=== PATIENT | male | born 1980 | race Caucasian/White ===

== ENCOUNTER 2017-10-11 18:44 | Emergency (ER) | payer OTHER, BC ==
[~2017-10-11] VITALS: Ht 182.9 cm; Wt 119.6 kg
[2017-10-11] MEDS ORDERED: MOTRIN800 MG PO (20:07)
[2017-10-11] MEDS ORDERED: NORCO 7.5/321 TABLET PO (20:07)
[2017-10-11 20:32] VITALS: BP 157/95
== END 2017-10-11 20:33 | disposition home or self-care (01) ==
LOC: EME 18:44
DX: S05.01XA Injury of conjunctiva and corneal abrasion without foreign body, right eye, initial encounter (principal); W22.8XXA Striking against or struck by other objects, initial encounter; Y99.0 Civilian activity done for income or pay; F17.200 Nicotine dependence, unspecified, uncomplicated
CPT/HCPCS: 99281; 99284